=== PATIENT | male | born 1975 | race Caucasian/White ===

== ENCOUNTER 2022-09-09 12:59 | Emergency (ER) | payer MEDICAID ==
[~2022-09-09] VITALS: Ht 167.6 cm; Wt 61.0 kg
[2022-09-09 13:03] VITALS: BP 141/65
[2022-09-09] MEDS ORDERED: ACETAMINOPHEN 325MG TABLET PO ONE (14:15)
[2022-09-09] MEDS ORDERED: BACITRACIN ZINC OINT UDPKT TOP ONE (14:15)
[2022-09-09] MEDS ORDERED: TETANUS, DIPHTHERIA, PERTUSSIS VAC/PF 0.5ML (>10YR OLD) IM ONE (14:15)
[2022-09-09] MEDS ORDERED: ACET-2708 MT (15:10)
== END 2022-09-09 15:49 | disposition home or self-care (01) ==
LOC: ER 12:59
DX: S01.91XA Laceration without foreign body of unspecified part of head, initial encounter (principal); W19.XXXA Unspecified fall, initial encounter; Y93.89 Activity, other specified; Y92.89 Other specified places as the place of occurrence of the external cause; Y99.8 Other external cause status
CPT/HCPCS: 12002; 90471; 90715; 99283

== ENCOUNTER 2022-09-16 10:38 | Emergency (ER) | payer BC ==
[~2022-09-16] VITALS: Ht 167.6 cm; Wt 62.0 kg
[~2022-09-16 10:38] MED LIST: ACET-2708 MT
[2022-09-16 10:54] VITALS: BP 149/88
== END 2022-09-16 12:39 | disposition home or self-care (01) ==
LOC: ER 10:55
DX: Z48.02 Encounter for removal of sutures (principal); Z98.890 Other specified postprocedural states
CPT/HCPCS: 99281

== ENCOUNTER 2024-03-16 14:02 | Emergency (ER) | payer BC ==
[~2024-03-16] VITALS: Ht 165.1 cm; Wt 68.0 kg
[2024-03-16 14:07] VITALS: TEMP 98.5; O2SAT 100
[2024-03-16 14:30] VITALS: BP 151/91; PULSE 78; RESP 20
[2024-03-16] MEDS: KETOROLAC 15MG/ML VIAL IM ONE (14:30)
[2024-03-16] MEDS ORDERED: NAPR-1176 MT (16:34)
== END 2024-03-16 17:12 | disposition home or self-care (01) ==
LOC: ER 14:31
DX: S06.0X0A Concussion without loss of consciousness, initial encounter (principal); Y08.89XA Assault by other specified means, initial encounter; Y93.89 Activity, other specified; Y92.89 Other specified places as the place of occurrence of the external cause; Y99.8 Other external cause status
CPT/HCPCS: 70450; 70486; 96372; 99285; J1885; Z7610

== ENCOUNTER 2024-07-17 08:36 | Emergency (ER) | payer BC, MEDICAID ==
[~2024-07-17] VITALS: Ht 152.4 cm; Wt 67.0 kg
[~2024-07-17 08:36] MED LIST changes: +NAPR-1176 MT
[2024-07-17 08:37] VITALS: O2SAT 100
[2024-07-17] MEDS: IBUPROFEN 600MG TABLET PO ONE (11:16)
[2024-07-17 11:17] VITALS: TEMP 98.6
[2024-07-17] MEDS: ACETAMINOPHEN 325MG TABLET PO ONE (11:17)
[2024-07-17] MEDS: TETANUS, DIPHTHERIA, PERTUSSIS VAC/PF 0.5ML (>10YR OLD) IM ONE (11:31)
[2024-07-17] MEDS: LIDOCAINE HCL 1% 20ML VIAL INFIL ONE (13:29)
[2024-07-17] MEDS ORDERED: TOPUD MT (15:45)
[2024-07-17] MEDS ORDERED: DICL500C MT (15:45)
[2024-07-17] MEDS ORDERED: IBUP-1523 MT (15:45)
[2024-07-17 16:04] VITALS: BP 124/80; PULSE 77; RESP 16; O2SAT 99
== END 2024-07-17 16:05 | disposition home or self-care (01) ==
LOC: ER 08:36
DX: L02.212 Cutaneous abscess of back [any part, except buttock and flank] (principal); Z98.890 Other specified postprocedural states; Z79.899 Other long term (current) drug therapy
CPT/HCPCS: 10060; 99284; J3490; Z7610 ×2